=== PATIENT | female | born 1995 | race Caucasian/White ===

== ENCOUNTER 2022-07-02 13:15 | Emergency (ER) | payer OTHER ==
[~2022-07-02] VITALS: Ht 157.4 cm; Wt 68.0 kg
[2022-07-02] MEDS ORDERED: Motrin,Rufen800 MG PO (14:09)
[2022-07-02] MEDS ORDERED: AMOXICILLIN500 M2 PO (14:09)
== END 2022-07-02 14:54 | disposition home or self-care (01) ==
LOC: ED 13:15
DX: K08.89 Other specified disorders of teeth and supporting structures (principal)